=== PATIENT | male | born 1995 | race Caucasian/White ===

== ENCOUNTER 2016-08-20 09:42 | Emergency (ER) | payer BC ==
[~2016-08-20] VITALS: Ht 182.9 cm; Wt 76.7 kg
[2016-08-20 09:51] VITALS: TEMP 37.2; Ht 182.9 cm; Wt 76.7 kg
[2016-08-20 10:23] LABS: HEMATOCRIT 44.4 % (42-52); MEAN CORPUSCULAR HEMOGLOBIN 29.1 pg (25-34); MEAN CORPUSCULAR HGB CONC 33.8 g/dl (32-36); MEAN PLATELET VOLUME 10.2 fL (7.4-10.4); PLATELET COUNT 182 K/uL (130-400); RED BLOOD COUNT 5.16 M/uL (4.7-6.1); WHITE BLOOD COUNT 12.49 K/uL (4.8-10.8)
[2016-08-20 10:53] VITALS: O2SAT 99
[2016-08-20 10:53] LABS: COMPLETE YES; EOSINOPHIL % 0.9 %; LYMPH ABS # 3.58 K/uL (1.2-3.4); LYMPHOCYTE % 28.7 %; NEUTROPHILS % 42.6 %; VARIANT LYM ABS # 2.82 K/uL; VARIANT LYMPHOCYTE % 22.6 %
[2016-08-20] MEDS ORDERED: PRED20TA PO (11:36)
[2016-08-20] MEDS ORDERED: AZITTAB PO (11:36)
[2016-08-20 11:44] VITALS: BP 119/72; PULSE 100
--- NOTE | 2016-08-20 17:20 | EMERGENCY ROOM VISIT NOTE ---
ED Visit Note First contact with patient: 09:56 CHIEF COMPLAINT: Sore throat and fever HISTORY OF PRESENT ILLNESS: This 21-year-old white male patient reports increasing pain in the throat over the last few days, gradual in onset. It is worse with swallowing. He also has fever, chills, and sweats. No rashes. Denies any posterior neck pain or stiffness. No difficulty breathing or shortness of breath. Mild right ear pain, but no cough or abdominal pain. He feels as though his head is very congested. Symptoms came on gradually. There has been no chest pain, no nausea or vomiting. No known ill contacts. A female friend accompanies him today. Pain is 4/10. He has tried nothing for treatment. REVIEW OF SYSTEMS: HEENT: No dizziness, visual problems, hearing loss, or tinnitus. no oral lesions are present. LYMPH: No adenopathy. PULMONARY: No cough, shortness of breath, sputum production or hemoptysis. CARDIOVASCULAR: No chest pain, palpitations, shortness of breath or peripheral edema. GASTROINTESTINAL: No diarrhea, constipation, nausea, vomiting, or abdominal pain. GENITOURINARY: No dysuria, frequency, urgency or nocturia. NEUROLOGIC: No weakness, muscle tenderness, epilepsy or history of neurological problems. MUSCULOSKELETAL: No history of joint tenderness/swelling. No history of arthritis or arthralgias. SKIN: No rashes or lesions. PSYCHIATRIC: No history of depression or mental illness. ENDOCRINE: No history of diabetes, thyroid disorders, or abnormal hair growth. Supplemental sheet was reviewed and signed. Previous surgeries: Arm surgery age 4 Medical history: Frequent Strep throat infections Current medications: None Allergies: NKDA Family History: Significant for diabetes SOCIAL HISTORY: [employer] student. Single. Lives with his girlfriend. No tobacco use. Positive EtOH use. PHYSICAL EXAM: Vital Signs: Afebrile. Reviewed and filed in patient's chart MENTAL STATUS: Alert and oriented. Skin:Warm and dry with good turgor. No rashes or lesions. No ecchymosis or erythema. The patient is mildly diaphoretic. No abrasions. HEENT: Normocephalic atraumatic. Eyes PERRLA, EOMI. No conjunctiva or scleral injection. Ears TMs intact bilaterally with good light reflex on the left. No erythema or bulging. No hemotympanum. Right TM has a distorted light reflex and red membrane. Canals are patent. Nares patent bilaterally without turbinate enlargement. Copious clear nasal drainage. No epistaxis. Oropharynx with erythema and exudate. Tonsils are very enlarged. Uvula midline, oral mucosa moist. No lesions present. Lymphatics are palpated with anterior chain enlargement and tenderness. There is also posterior chain enlargement and tenderness. Heart: Heart RRR. No MGR. Peripheral pulses are 2+. Lungs: Lungs are clear to auscultation. No crackles, rhonchi, or wheezing. Good air movement. The patient is able to take a deep breath. Abdomen: Abdomen was inspected, auscultated, and palpated. Bowel sounds present x 4. Soft, nontender to palpation. No hepato-splenomegaly. No masses noted. No rebound, no splenic enlargement. Data: Rapid strep obtained today was negative. Back up cultures were sent. Monospot obtained today is positive. DIAGNOSIS: Mononucleosis. Right ear otitis media DISCHARGE INSTRUCTIONS & TREATMENT: Patient was educated regarding today's findings. Conservative care measures were discussed. They will be called if the back up cultures return positive. Maintain hydration. Avoid abdominal trauma. Tylenol and ibuprofen every 6 hours as needed for discomfort and fever. Prescription was given for Zithromax Z-Candido to be used daily for 5 days for his ear. He was also prescribed prednisone tapering course over 6 days to help with his tonsillar swelling. Read the mono instruction sheet. Avoid sharing saliva. Follow-up with his PCP as needed. Return to the ED for any other concerns. He was reassured that I do not suspect influenza or sinusitis at this time. Current/Historical Medications Scheduled Azithromycin (Zithromax Z-Candido), 0 PO UD Prednisone (Prednisone), 0 PO DAILY Allergies Coded Allergies: No Known Allergies (Unverified , 08/20/16) Vital Signs Date Time Temp Pulse Resp B/P Pulse Ox O2 Delivery O2 Flow Rate FiO2 08/20/16 11:44 100 119/72 08/20/16 10:53 100 18 111/64 99 Room Air 08/20/16 09:51 37.2 111 18 133/84 98 Room Air Laboratory Results 08/20/16 10:00 Red Blood Count 5.16, Mean Corpuscular Volume 86.0, Mean Corpuscular Hemoglobin 29.1, Mean Corpuscular Hemoglobin Concent 33.8, Mean Platelet Volume 10.2 Test 08/20/16 10:00 White Blood Count 12.49 K/uL (4.8-10.8) Red Blood Count 5.16 M/uL (4.7-6.1) Hemoglobin 15.0 g/dL (14.0-18.0) Hematocrit 44.4 % (42-52) Mean Corpuscular Volume 86.0 fL (80-100) Mean Corpuscular Hemoglobin 29.1 pg (25-34) Mean Corpuscular Hemoglobin Concent 33.8 g/dl (32-36) Platelet Count 182 K/uL (130-400) Mean Platelet Volume 10.2 fL (7.4-10.4) RDW Standard Deviation 42.1 fL (36.4-46.3) RDW Coefficient of Variation 13.3 % (11.5-14.5) Neutrophils % (Manual) 42.6 % Lymphocytes % (Manual) 28.7 % Variant Lymphocytes % (manual) 22.6 % Monocytes % (Manual) 5.2 % Eosinophils % (Manual) 0.9 % Neutrophils # (Manual) 5.32 K/uL (1.4-6.5) Total Absolute Neutrophils 5.32 K/uL (1.4-6.5) Lymphocytes # (Manual) 3.58 K/uL (1.2-3.4) Absolute Variant Lymphocytes 2.82 K/uL Total Absolute Lymphocytes 6.41 K/uL (1.2-3.4) Monocytes # (Manual) 0.65 K/uL (0.11-0.59) Eosinophils # (Manual) 0.11 K/uL (0-0.5) Red Blood Cell Morphology Unremarkable Monoscreen POS (NEG) Departure Information Impression Primary Impression: Otitis media, right Additional Impression: Mononucleosis Dispostion Home / Self-Care Condition GOOD Prescriptions Prednisone (Prednisone) 20 Mg Tab 0 PO DAILY, #12 TAB 3 DAILY FOR 2 DAYS, THEN 2 DAILY FOR 2 DAYS, THEN 1 DAILY FOR 2 DAYS. Prov: Gregory Silva,P.A. 08/20/16 Azithromycin (ZITHROMAX Z-CANDIDO) 250 Mg Tab 0 PO UD, #1 PKT 2 TABS DAY 1, THEN 1 TAB DAILY FOR 4 DAYS Prov: Gregory Silva,P.A. 08/20/16 Referrals [facility] Forms HOME CARE DOCUMENTATION FORM, IMPORTANT VISIT INFORMATION Patient Instructions Mononucleosis, My [facility] Additional Instructions Take Zithromax daily 5 days as directed on package Take prednisone daily for 6 days Tylenol and Motrin every 6 hours as needed for discomfort Rest as able Avoid contact sports or risk of trauma to the abdomen You are contagious until symptoms resolve Avoid sharing drinks, food, utensils, and avoid kissing, until symptoms resolve Problem Qualifiers
== END 2016-08-20 11:46 | disposition home or self-care (01) ==
LOC: C.EDB 09:43 → C.EDC 11:46
DX: H66.91 Otitis media, unspecified, right ear (principal); B27.90 Infectious mononucleosis, unspecified without complication; Z83.3 Family history of diabetes mellitus

== ENCOUNTER 2017-01-06 22:58 | Emergency (ER) | payer OTHER, BC ==
[~2017-01-06] VITALS: Ht 185.4 cm; Wt 80.4 kg
[~2017-01-06 22:58] MED LIST: PRED20TA PO
[2017-01-06 23:00] VITALS: Ht 185.4 cm; Wt 80.4 kg
[2017-01-06] MEDS ORDERED: IBUPROFEN 600 MG TAB PO STA (23:08)
[2017-01-06] MEDS ORDERED: XYLOCAINE 1%/SOD BICARB 20 ML VIAL INFIL ONE (23:15)
--- NOTE | 2017-01-06 23:25 | EMERGENCY ROOM VISIT NOTE ---
ED Visit Note First contact with patient: 23:03 CHIEF COMPLAINT: hand laceration HISTORY OF PRESENT ILLNESS: This 21 yo patient presents to the emergency department after cutting the hand on a piece of glass just [employer] . The bleeding has stopped. Denies weakness or numbness of the extremity. patient has full range of motion of the extremity The patient rates the pain as mild and 3/10. The patient denies any other injuries. The patient's tetanus shot is up to date. REVIEW OF SYSTEMS: A 6 system review of systems was completed with positives and pertinent negatives listed in the HPI. ALLERGIES: none MEDICATIONS: none PMH: none SOCIAL HISTORY: no drug use PHYSICAL EXAM: Vital Signs: Reviewed Nurse's notes, vital signs stable. GENERAL : pleasant male, in no acute distress, well developed, well nourished. SKIN: There is a 2 2 cm long lacerations on the to the palm of left hand. The edges gape apart with traction. There is no foreign material in the wound and it looks clean. There is minimal bleeding. No deep structures such as tendons, bones, or significant blood vessels are seen in the base of the wound. Extension and flexion of the extremity is full and strong. Full range of motion of the extremity. Capillary refill less than 2 seconds. Normal sensation to light and sharp touch. EMERGENCY DEPARTMENT COURSE: I examined the patient. Using sterile technique the wound was cleansed with Betadine. 3 ml of 1% buffered lidocaine was used to anesthetize the patient. The area was sterilely draped. Once the patient was anesthetized, the wounds were copiously irrigated under pressure with sterile saline. The wound was explored and there were no deep structures injured. The lacerations were repaired using total 4 simple interrupted 4-0 nylon sutures. The patient tolerated the procedure well. Hemostasis was achieved. The area was cleaned with sterile saline and dressed with bacitracin ointment and bandage. The patient was discharged home in good condition. Differential diagnosis includes laceration, tendon injury, vascular injury and other etiologies were considered. DIAGNOSIS: 2 left hand lacerations, 2cm each DISCHARGE INSTRUCTIONS & TREATMENT: Keep wound clean and dry. Do not allow any crusting or dried blood to accumulate on sutures. If this occurs, use a 1:1 solution of hydrogen peroxide/water on a Q-tip to clean the wound. Use an antibiotic ointment for 3-4 days, then let wound dry. Suture removal in 10-12 days. Return sooner for any signs of infection (increasing redness, swelling, drainage). Ice and elevate for swelling and pain. Ibuprofen 600 mg and Tylenol 1000 mg every 6 hrs for pain. Keep covered when in sun until sutures removed then SPF 50 or higher for one year. Vitamin E oil if desired two weeks after suture removal for reduction of scar. Current/Historical Medications No Active Prescriptions or Reported Meds Allergies Coded Allergies: No Known Allergies (Unverified , 08/20/16) Vital Signs Date Time Temp Pulse Resp B/P (MAP) Pulse Ox O2 Delivery O2 Flow Rate FiO2 01/06/17 23:00 36.9 91 20 117/76 96 Room Air Medications Administered Medications (Trade) Dose Ordered Sig/Blas Route Start Time Stop Time Status Last Admin Dose Admin Ibuprofen (Motrin Tab) 600 mg NOW STAT PO 01/06/17 23:08 01/06/17 23:09 DC 01/06/17 23:14 600 MG Lidocaine HCl (Buffered Lidocaine 1% Inj) 20 ml ONE ONCE INFIL 01/06/17 23:15 01/06/17 23:16 DC 01/06/17 23:15 20 ML Departure Information Impression Primary Impression: Laceration of right hand Dispostion Home / Self-Care Condition GOOD Prescriptions No Active Prescriptions or Reported Meds Forms HOME CARE DOCUMENTATION FORM, IMPORTANT VISIT INFORMATION Patient Instructions [facility], ED Laceration All Additional Instructions Keep wound clean and dry. Do not allow any crusting or dried blood to accumulate on sutures. If this occurs, use a 1:1 solution of hydrogen peroxide/ water on a Q-tip to clean the wound. Use an antibiotic ointment for 3-4 days, then let wound dry. Suture removal in 10-12 days. Return sooner for any signs of infection (increasing redness, swelling, drainage). Ice and elevate for swelling and pain. Ibuprofen 600 mg and Tylenol 1000 mg every 6 hrs for pain. Keep covered when in sun until sutures removed then SPF 50 or higher for one year. Vitamin E oil if desired two weeks after suture removal for reduction of scar
[2017-01-07 00:30] VITALS: BP 127/79; PULSE 87; TEMP 36.9; O2SAT 99
== END 2017-01-07 00:30 | disposition home or self-care (01) ==
LOC: C.EDB 23:01 → C.EDC 01-07 00:30
DX: S61.412A Laceration without foreign body of left hand, initial encounter (principal); W25.XXXA Contact with sharp glass, initial encounter